=== PATIENT | female | born 1975 | race Caucasian/White ===

== ENCOUNTER 2018-01-15 17:35 | Emergency (ER) | payer BC, OTHER, MEDICAID ==
[~2018-01-15] VITALS: Ht 175.3 cm; Wt 108.9 kg
[~2018-01-15 17:35] MED LIST: AUGMENTIN 875875 MG PO; BARIATRIC VITAMINS; CALCIUM +D & M1 EACH PO; CARAFATE 1 GM TA1 GM PO; CIPRO500 MG PO; COLACE100 MG PO; CYMBALTA60 MG PO; DARVOCET-N 1001 EACH PO; FLAGYL500 MG PO; HYDROCODONE-APA1 TA1 PO; LISINOPRIL-HCT1 EACH PO; LISINOPRIL10 MG; MIRALAX17 GM PO; NECON1 EAC4 PO; OMEPRAZOLE; PEPCID20 MG PO; PERCOCET 7.5-31 EACH PO; PERCOCET PO; PHENERGAN 25 MG25 M1 PO; TOBRAMYCIN SULFA5 ML OPHTHALMIC; VICODIN; VITAMINS; ZOFRAN 4 MG ORAL4 M1 DIS; ZOFRAN ODT4 MG PO
[2018-01-15] MEDS ORDERED: WELLBUTRIN XL300 MG PO (17:44)
[2018-01-15 20:12] VITALS: BP 137/72
== END 2018-01-15 20:13 | disposition home or self-care (01) ==
LOC: M.ERS 17:35
DX: S00.33XA Contusion of nose, initial encounter (principal); I10 Essential (primary) hypertension; F32.9 Major depressive disorder, single episode, unspecified; Z91.040 Latex allergy status; W18.39XA Other fall on same level, initial encounter; Y93.89 Activity, other specified; Y92.89 Other specified places as the place of occurrence of the external cause; Y99.8 Other external cause status

== ENCOUNTER 2018-11-05 16:22 | Emergency (ER) | payer BC, OTHER, MEDICAID ==
[~2018-11-05] VITALS: Ht 175.3 cm; Wt 122.5 kg
[~2018-11-05 16:22] MED LIST changes: +WELLBUTRIN XL300 MG PO
[2018-11-05] MEDS ORDERED: CYMBALTA60 MG PO (16:31)
[2018-11-05] MEDS ORDERED: LISINOPRIL5 MG PO (16:31)
[2018-11-05] MEDS ORDERED: REQUIP3 MG PO (16:31)
[2018-11-05] MEDS ORDERED: ADIPEX-P37.5 MG PO (16:32)
[2018-11-05 16:42] LABS: URINE BILIRUBIN NEGATIVE (Negative); URINE BLOOD NEGATIVE (Negative); URINE CLARITY CLEAR; URINE COLOR YELLOW; URINE GLUCOSE-RANDOM NEGATIVE (Negative); URINE KETONES NEGATIVE (Negative); URINE LEUKOCYTES-REFLEX NEGATIVE (Negative); URINE NITRITE-REFLEX NEGATIVE (Negative); URINE PROTEIN NEGATIVE (Negative); URINE SPECIFIC GRAVITY >= 1.030 (1.005-1.030); URINE UROBILINOGEN 0.2 E.U./dl (0.2-1.0)
[2018-11-05 17:01] LABS: HEMOGLOBIN 10.3 gm/dL (12.0-15.0); MPV 9.3 fl. (7.2-11.1); NUCLEATED RBCS 0 /100WBC
[2018-11-05 17:03] LABS: CALCIUM 8.4 mg/dL (8.5-10.1); CREATININE 0.9 mg/dL (0.6-1.3); POTASSIUM 3.5 mmol/L (3.5-5.1)
[2018-11-05 17:04] LABS: HEMATOCRIT 32.2 % (37.0-47.0); MCH 23.6 pg (26.0-34.0); MCHC 31.9 g/dL (28.0-37.0); PLATELET COUNT* 327 thou/uL (150-400); RBC 4.35 mil/uL (4.20-5.00); RDW-CV 16.8 % (10.5-14.5); WBC 8.3 thou/uL (4.0-11.0)
[2018-11-05 17:08] LABS: ALBUMIN 3.2 g/dL (3.4-5.0); TOTAL BILIRUBIN 0.2 mg/dL (<0.1-1.0); TOTAL PROTEIN 6.9 g/dL (6.4-8.2)
[2018-11-05 17:19] LABS: ABSOLUTE EOSINOPHILS 0.8 thou/uL (0.0-0.7); ABSOLUTE LYMPHOCYTES 3.9 thou/uL (0.8-5.3); ABSOLUTE MONOCYTES 0.2 thou/uL (0.0-1.2); ABSOLUTE NEUTROPHILS 3.3 thou/uL (1.6-8.1); ATYPICAL LYMPHS 5 %; HYPOCHROMASIA 1+; MICROCYTES 1+; PLATELET ESTIMATE ADEQUATE
[2018-11-05 17:58] VITALS: BP 113/63
== END 2018-11-05 18:00 | disposition home or self-care (01) ==
LOC: M.ERS 16:22
PROVIDERS: Nurse Practitioner Family
DX: K59.00 Constipation, unspecified (principal); R11.2 Nausea with vomiting, unspecified; F32.9 Major depressive disorder, single episode, unspecified; I10 Essential (primary) hypertension; G25.81 Restless legs syndrome; Z91.040 Latex allergy status

== ENCOUNTER 2019-05-19 10:28 | Emergency (ER) | payer BC ==
[~2019-05-19] VITALS: Ht 175.3 cm; Wt 121.1 kg
[~2019-05-19 10:28] MED LIST changes: +ADIPEX-P37.5 MG PO; +LISINOPRIL5 MG PO; +REQUIP3 MG PO
[2019-05-19] MEDS ORDERED: OMEPRAZOLE10 MG PO (10:40)
[2019-05-19 11:11] LABS: ABSOLUTE BASOPHILS 0.1 thou/uL (0.0-0.2); ABSOLUTE EOSINOPHILS 0.6 thou/uL (0.0-0.7); ABSOLUTE LYMPHOCYTES 1.7 thou/uL (0.8-5.3); ABSOLUTE MONOCYTES 0.7 thou/uL (0.0-1.2); ABSOLUTE NEUTROPHILS 4.9 thou/uL (1.6-8.1); BASOPHILS 0.9 %; EOSINOPHILS 7.7 %; HEMATOCRIT 32.7 % (37.0-47.0); HEMOGLOBIN 10.4 gm/dL (12.0-15.0); LYMPHOCYTES 21.5 %; MCH 25.3 pg (26.0-34.0); MCHC 31.8 g/dL (28.0-37.0); MCV 79.4 fL (80.0-100.0); MONOCYTES 9.1 %; MPV 7.7 fl. (7.2-11.1); NUCLEATED RBCS 0 /100WBC; PLATELET COUNT* 627 thou/uL (150-400); POLYS 60.8 %; RBC 4.11 mil/uL (4.20-5.00)
[2019-05-19 11:19] LABS: CALCIUM 8.3 mg/dL (8.5-10.1); CREATININE 0.6 mg/dL (0.6-1.3)
[2019-05-19 11:21] LABS: POTASSIUM 2.7 mmol/L (3.5-5.1)
[2019-05-19 11:24] LABS: ALBUMIN 2.5 g/dL (3.4-5.0); TOTAL BILIRUBIN 0.3 mg/dL (<0.1-1.0); TOTAL PROTEIN 6.4 g/dL (6.4-8.2)
[2019-05-19] MEDS ORDERED: LEVAQUIN 500 M500 M2 PO (13:46)
[2019-05-19 13:57] VITALS: BP 133/84
== END 2019-05-19 13:55 | disposition home or self-care (01) ==
LOC: M.ERS 10:28
PROVIDERS: Nurse Practitioner Family
DX: T81.41XA Infection following a procedure, superficial incisional surgical site, initial encounter (principal); R10.31 Right lower quadrant pain; I10 Essential (primary) hypertension; G25.81 Restless legs syndrome; Z91.040 Latex allergy status; Z88.5 Allergy status to narcotic agent; Y83.8 Other surgical procedures as the cause of abnormal reaction of the patient, or of later complication, without mention of misadventure at the time of the procedure; Y92.89 Other specified places as the place of occurrence of the external cause

== ENCOUNTER → 2019-05-29 | Outpatient (CLI) | payer BC ==
[~2019-05-29] MED LIST changes: +LEVAQUIN 500 M500 M2 PO; +OMEPRAZOLE10 MG PO
== END ==
LOC: M.ULTRA 14:50
DX: N63.20 Unspecified lump in the left breast, unspecified quadrant (principal)

== ENCOUNTER 2019-06-14 21:36 | Emergency (ER) | payer BC ==
[~2019-06-14] VITALS: Ht 175.3 cm; Wt 113.4 kg
[2019-06-14] MEDS ORDERED: LISINOPRIL5 MG PO (21:51)
[2019-06-14 22:09] LABS: ABSOLUTE BASOPHILS 0.1 thou/uL (0.0-0.2); ABSOLUTE EOSINOPHILS 0.5 thou/uL (0.0-0.7); ABSOLUTE LYMPHOCYTES 2.5 thou/uL (0.8-5.3); ABSOLUTE MONOCYTES 0.6 thou/uL (0.0-1.2); ABSOLUTE NEUTROPHILS 4.8 thou/uL (1.6-8.1); BASOPHILS 0.9 %; EOSINOPHILS 5.8 %; HEMATOCRIT 35.3 % (37.0-47.0); HEMOGLOBIN 11.6 gm/dL (12.0-15.0); LYMPHOCYTES 29.3 %; MCH 26.3 pg (26.0-34.0); MCV 79.6 fL (80.0-100.0); MONOCYTES 7.3 %; MPV 9.4 fl. (7.2-11.1); NUCLEATED RBCS 0 /100WBC; PLATELET COUNT* 193 thou/uL (150-400); POLYS 56.7 %; RBC 4.43 mil/uL (4.20-5.00); RDW-CV 16.5 % (10.5-14.5); WBC 8.4 thou/uL (4.0-11.0)
[2019-06-14 22:15] LABS: CREATININE 0.9 mg/dL (0.6-1.3); POTASSIUM 3.3 mmol/L (3.5-5.1)
[2019-06-14 22:26] LABS: ALBUMIN 3.4 g/dL (3.4-5.0); TOTAL BILIRUBIN 0.3 mg/dL (<0.1-1.0); TOTAL PROTEIN 7.5 g/dL (6.4-8.2)
[2019-06-15 00:15] VITALS: BP 144/78
== END 2019-06-15 00:15 | disposition home or self-care (01) ==
LOC: M.ERS 21:36
PROVIDERS: Family Medicine
DX: M79.661 Pain in right lower leg (principal); M79.89 Other specified soft tissue disorders; I10 Essential (primary) hypertension; F32.9 Major depressive disorder, single episode, unspecified; G25.81 Restless legs syndrome; Z90.49 Acquired absence of other specified parts of digestive tract; Z91.040 Latex allergy status; Z88.8 Allergy status to other drugs, medicaments and biological substances

== ENCOUNTER → 2020-06-06 | Outpatient (CLI) | payer BC | LOC: M.ULTRA 15:00 | PROVIDERS: ATTEND Surgery | DX: N63.20 Unspecified lump in the left breast, unspecified quadrant (principal) ==

== ENCOUNTER 2020-06-13 12:56 | Inpatient (IN) | payer BC ==
[~2020-06-13] VITALS: Ht 175.3 cm; Wt 90.7 kg
[2020-06-13 13:17] VITALS: BP 141/92
[2020-06-13] MEDS ORDERED: MULTIVITAMINS1 EAC7 PO (13:20)
[2020-06-13 13:27] LABS: URINE BILIRUBIN NEGATIVE (Negative); URINE BLOOD NEGATIVE (Negative); URINE CLARITY CLEAR; URINE COLOR YELLOW; URINE GLUCOSE-RANDOM NEGATIVE (Negative); URINE KETONES NEGATIVE (Negative); URINE LEUKOCYTES-REFLEX NEGATIVE (Negative); URINE NITRITE-REFLEX NEGATIVE (Negative); URINE PROTEIN NEGATIVE (Negative); URINE SPECIFIC GRAVITY 1.025 (1.005-1.030); URINE UROBILINOGEN 0.2 E.U./dl (0.2-1.0)
[2020-06-13 13:40] LABS: ABSOLUTE BASOPHILS 0.1 thou/uL (0.0-0.2); ABSOLUTE EOSINOPHILS 0.6 thou/uL (0.0-0.7); ABSOLUTE LYMPHOCYTES 2.9 thou/uL (0.8-5.3); ABSOLUTE MONOCYTES 0.6 thou/uL (0.0-1.2); ABSOLUTE NEUTROPHILS 4.6 thou/uL (1.6-8.1); BASOPHILS 1.1 %; EOSINOPHILS 7.2 %; HEMATOCRIT 40.4 % (37.0-47.0); HEMOGLOBIN 13.6 gm/dL (12.0-15.0); LYMPHOCYTES 32.7 %; MCHC 33.6 g/dL (28.0-37.0); MCV 89.3 fL (80.0-100.0); MONOCYTES 7.1 %; NUCLEATED RBCS 0 /100WBC; PLATELET COUNT* 235 thou/uL (150-400); POLYS 51.9 %; RBC 4.52 mil/uL (4.20-5.00); RDW-CV 13.6 % (10.5-14.5); WBC 8.9 thou/uL (4.0-11.0)
[2020-06-13 14:34] LABS: CALCIUM 8.4 mg/dL (8.5-10.1); CREATININE 0.8 mg/dL (0.6-1.3); POTASSIUM 4.2 mmol/L (3.5-5.1)
[2020-06-13 14:38] LABS: ALBUMIN 3.5 g/dL (3.4-5.0); TOTAL BILIRUBIN 0.4 mg/dL (<0.1-1.0); TOTAL PROTEIN 6.9 g/dL (6.4-8.2)
[2020-06-13 17:10] VITALS: BP 115/58
[2020-06-13 17:34] VITALS: BP 135/85
[2020-06-13 17:51] VITALS: BP 135/85
[2020-06-13 19:46] VITALS: BP 113/79
[2020-06-14 05:33] LABS: HEMOGLOBIN 12.5 gm/dL (12.0-15.0); MCH 29.9 pg (26.0-34.0); MCHC 33.7 g/dL (28.0-37.0); MCV 88.8 fL (80.0-100.0); MPV 9.4 fl. (7.2-11.1); RBC 4.16 mil/uL (4.20-5.00); RDW-CV 13.9 % (10.5-14.5); WBC 4.5 thou/uL (4.0-11.0)
[2020-06-14 05:53] LABS: CALCIUM 8.4 mg/dL (8.5-10.1); CREATININE 0.8 mg/dL (0.6-1.3); MAGNESIUM 2.2 mg/dL (1.8-2.4); POTASSIUM 3.8 mmol/L (3.5-5.1); TOTAL BILIRUBIN 0.5 mg/dL (<0.1-1.0); TOTAL PROTEIN 5.8 g/dL (6.4-8.2)
[2020-06-14 08:00] VITALS: BP 147/94
[2020-06-14 17:00] VITALS: BP 124/71
[2020-06-14 19:16] VITALS: BP 109/73
[2020-06-15 07:15] VITALS: BP 133/83
[2020-06-15 15:19] VITALS: BP 133/90
[2020-06-15 19:34] VITALS: BP 120/80
[2020-06-16 05:21] LABS: HEMATOCRIT 37.4 % (37.0-47.0); HEMOGLOBIN 12.7 gm/dL (12.0-15.0); MCH 29.9 pg (26.0-34.0); MCHC 33.9 g/dL (28.0-37.0); MCV 88.4 fL (80.0-100.0); MPV 9.4 fl. (7.2-11.1); RBC 4.23 mil/uL (4.20-5.00); RDW-CV 13.5 % (10.5-14.5); WBC 6.1 thou/uL (4.0-11.0)
[2020-06-16 05:50] LABS: ALBUMIN 3.2 g/dL (3.4-5.0); CALCIUM 8.4 mg/dL (8.5-10.1); CREATININE 0.8 mg/dL (0.6-1.3); MAGNESIUM 1.8 mg/dL (1.8-2.4); POTASSIUM 3.7 mmol/L (3.5-5.1); TOTAL BILIRUBIN 0.4 mg/dL (<0.1-1.0); TOTAL PROTEIN 5.9 g/dL (6.4-8.2)
[2020-06-16] MEDS ORDERED: HOME MEDICATION PO (08:31)
[2020-06-16] MEDS ORDERED: MIRALAX17 GM PO (08:31)
[2020-06-16 08:55] VITALS: BP 120/80
[2020-06-16 09:01] VITALS: BP 120/80
[2020-06-16 09:18] VITALS: BP 119/81
[2020-06-16] MEDS ORDERED: LINZESS290 MCG PO (10:25)
[2020-06-16 10:52] VITALS: BP 120/80
[2020-06-16 11:19] VITALS: BP 120/80
[2020-06-16 11:51] VITALS: BP 120/80
--- NOTE | 2020-06-16 15:35 | CON ---
[address] [address] CONSULTATION Name: MARCELLE GARZA Room: [address]#: [id number] Admission: 06/13/20 Attend Phys: Katiana Dobbs MD Discharge: 06/16/20 Date of : 79 Report #: [id number] THIS REPORT FOR: //name// cc: Margarette Herrera Kathleen M. DO ~ THIS REPORT FOR: //name// CC: Margarette Dobbs DATE OF SERVICE: 06/15/2020 HISTORY OF PRESENT ILLNESS: This is a pleasant 44-year-old female with past medical history significant for chronic constipation, who is presenting for evaluation of abdominal pain. The patient reports abdominal pain located in the right lower quadrant. This was more than her usual abdominal pain and therefore presented to the hospital. Upon presentation, the patient was noted to have acute pancreatitis in addition to her baseline chronic constipation. The patient reports the pain is now about 3/10 in severity, localized, nonradiating, associated with some nausea, no vomiting. The patient denies any weight loss and she denies similar episodes in the past. The patient denies any significant alcohol use at this time. PAST MEDICAL HISTORY: The patient has a history of restless legs syndrome. PAST SURGICAL HISTORY: The patient has a history of gastric bypass surgery and cholecystectomy. SOCIAL HISTORY: The patient denies smoking, alcohol or recreational drug use. FAMILY HISTORY: No family history of colon cancer or pancreatic cancer. REVIEW OF SYSTEMS: A comprehensive 10-point review of systems is negative except for what was mentioned in the HPI. PHYSICAL EXAMINATION: VITAL SIGNS: Temperature 36.8, pulse rate 74, respirations 14, blood pressure 133/83, pulse ox 97% on room air. GENERAL: The patient is alert, awake, oriented x 3. HEENT: Pupils are equal, round, reactive to light and accommodation. Mucous membranes are moist. There is no congestion. LUNGS: Clear to auscultation bilaterally. CARDIOVASCULAR: Rate and rhythm regular, S1, S2 present. ABDOMEN: Soft. There is no distention, guarding or rigidity. Mild tenderness to palpation in the right lower quadrant. EXTREMITIES: Warm, [place] [address] CONSULTATION Name: MARCELLE GARZA Room: [address]#: [id number] Admission: 06/13/20 Attend Phys: Katiana Dobbs MD Discharge: 06/16/20 Date of : 79 Report #: [id number] LABORATORY DATA: Hemoglobin 12.5, hematocrit 37.0, platelet count 203, WBC count 4.5. Sodium 141, potassium 3.8, chloride 108, bicarbonate 27, BUN 11, creatinine 0.8, total bilirubin 0.5, AST 50, ALT 48, alkaline phosphatase 59, lipase 1108 on presentation. IMAGING: CT abdomen and pelvis demonstrates mild intrahepatic biliary ductal dilation, similar to previous study. Large amount of retained stool. History of Jacquelyn-en-Y gastric bypass. ASSESSMENT AND PLAN: Pleasant 44-year-old female with history of chronic constipation, presenting for an episode of acute pancreatitis. I would follow her acute pancreatitis. Continue supportive care. Advance diet as tolerated. For her chronic constipation, I would recommend giving her GoLYTELY prep until she starts moving her bowels. Since this is a first episode of acute pancreatitis and this is mild in severity, we would not recommend any further investigation at this time. Thank you for this consultation. <ELECTRONICALLY SIGNED> By: Kelvin Saenz MD 06/16/20 1535 [id number] Saenz MD /nt
== END 2020-06-16 11:55 | disposition home or self-care (01) | DRG 440 ==
LOC: M.ERS 12:56 → M.TBA-ER 13:49 → M.ORTHSURG 16:37
PROVIDERS: Nurse Practitioner Family; ADMIT Internal Medicine; ATTEND Internal Medicine
DX: K85.90 Acute pancreatitis without necrosis or infection, unspecified (principal); K59.00 Constipation, unspecified; E66.9 Obesity, unspecified; I10 Essential (primary) hypertension; G25.81 Restless legs syndrome; F32.9 Major depressive disorder, single episode, unspecified; Z20.828 Contact with and (suspected) exposure to other viral communicable diseases; Z90.49 Acquired absence of other specified parts of digestive tract; Z68.29 Body mass index [BMI] 29.0-29.9, adult; Z98.84 Bariatric surgery status; Z79.899 Other long term (current) drug therapy; Z88.5 Allergy status to narcotic agent; Z91.040 Latex allergy status